=== PATIENT | male | born 1990 | race Caucasian/White ===

== ENCOUNTER 2019-01-08 18:22 | Inpatient (IN) | payer SELFPAY ==
[~2019-01-08] VITALS: Ht 175.3 cm; Wt 69.2 kg
[2019-01-08] MEDS ORDERED: ADENOSINE 3 MG/ML 2ML VIAL IV ONE ×5 (18:55→20:30)
[2019-01-08] MEDS ORDERED: DILTIAZEM HCL 5MG/ML 5ML VIAL IV ONE ×6 (19:06→19:30)
[2019-01-08] MEDS ORDERED: LORAZEPAM 2MG/ML CPJ ONE ×2 (19:15→19:21)
[2019-01-08 19:26] LABS: BASOPHILS % 0.5 % (0.0-2.0); EOSINOPHILS % 0.2 % (0.0-5.0); HEMATOCRIT. 48.1 % (42.0-52.0); LYMPHOCYTES % 23.1 % (20.0-50.0); MEAN CORPUSCULAR HEMOGLOBIN 30.3 pg (28.0-32.0); MEAN CORPUSCULAR VOLUME 90.9 fL (80.0-94.0); MEAN PLATELET VOLUME 8.1 fl (7.4-10.4); MONOCYTES % 7.8 % (2.0-8.0); NEUTROPHILS % 68.4 % (40.0-76.0); PLATELET 327 x1000/uL (130-400); RED BLOOD CELL COUNT 5.29 mill/uL (4.7-6.1); RED CELL DISTRIBUTION WIDTH 13.4 % (11.6-14.6)
[2019-01-08] MEDS ORDERED: LORAZEPAM 2MG/ML CPJ IV ONE ×3 (19:30→19:45)
[2019-01-08 19:33] LABS: CHLORIDE 103 mEq/L (98-107); PROTHROMBIN TIME 10.1 sec (9.1-11.1)
[2019-01-08 19:37] LABS: ETHANOL BLOOD < 10 mg/dL
[2019-01-08] MEDS ORDERED: ONDANSETRON HCL 4MG/2ML INJ IV ONE (20:00)
[2019-01-08] MEDS ORDERED: SODIUM CHLORIDE 0.9% 1000ML BAG (SEPSIS BOLUS) IV ONE (20:00)
[2019-01-08] MEDS ORDERED: ETOMIDATE 2MG/ML 10ML VIAL IV ONE ×2 (20:00→23:00)
[2019-01-08] MEDS ORDERED: ACETAMINOPHEN 650MG SUPP PR STA (20:35)
[2019-01-08] MEDS ORDERED: PROPOFOL 10MG/ML 100ML 100 ML IV ONE (20:45)
[2019-01-08] MEDS ORDERED: PIPERACILLIN/TAZ 3.375G PREMIX 50 ML IV ONE (20:45)
[2019-01-08 20:52] LABS: CLARITY URINE CLOUDY (CLEAR); COLOR URINE YELLOW (YELLOW); KETONES URINE TRACE (NEGATIVE); LEUKOCYTE ESTERASE URINE NEGATIVE (NEGATIVE); NITRITE URINE NEGATIVE (NEGATIVE); OCCULT BLOOD URINE NEGATIVE (NEGATIVE); PROTEIN URINE TRACE (NEGATIVE); SPECIFIC GRAVITY URINE 1.023 (1.005-1.030); UROBILINOGEN URINE 0.2 E.U./dL (0.2-1.0)
[2019-01-08] MEDS ORDERED: PIPERACILLIN/TAZ 3.375G PREMIX 50 ML IV SCH (21:00)
[2019-01-08 21:13] LABS: CREATINE KINASE 268 IU/L (39-308)
[2019-01-08 21:28] LABS: CANNABINOID URINE SCREEN NEGATIVE (NEGATIVE); METHADONE URINE SCREEN NEGATIVE (NEGATIVE); OPIATES URINE SCREEN NEGATIVE (NEGATIVE); PHENCYCLIDINE URINE SCREEN NEGATIVE (NEGATIVE)
[2019-01-08 21:29] LABS: *AMPHETAMINES SCREEN URINE PRESUMTIVE POSITIVE (NEGATIVE); *BARBITURATES SCREEN URINE NEGATIVE (NEGATIVE); *BENZODIAZEPINES SCREEN URINE NEGATIVE (NEGATIVE); *COCAINE SCREEN URINE PRESUMTIVE POSITIVE (NEGATIVE)
[2019-01-08] MEDS ORDERED: VANCOMYCIN 1 G PREMIX 200 ML IV ONE (21:30)
[2019-01-08] MEDS ORDERED: ONDANSETRON HCL 4MG/2ML INJ IV PRN (22:30)
[2019-01-08] MEDS ORDERED: IPRATROPIUM/ALBUTEROL 0.5-3(2.5)MG/3ML NEB INH PRN (22:30)
[2019-01-08] MEDS ORDERED: HYDROCODONE/ACETAMINOPHEN 5/325MG TABLET PO PRN (22:30)
[2019-01-08] MEDS ORDERED: CLONIDINE 0.1MG TABLET PO PRN (22:30)
[2019-01-08] MEDS ORDERED: GUAIFENESIN 200MG/10ML SUGAR FREE UDC PO PRN (22:30)
[2019-01-08] MEDS ORDERED: MAGNESIUM/ALUMINUM HYDROXIDE/SIMETHICONE 30ML UDC PO PRN (22:30)
[2019-01-08] MEDS ORDERED: VANCOMYCIN 1 G PREMIX 200 ML IV SCH (22:30)
[2019-01-08] MEDS ORDERED: ACETAMINOPHEN 325MG TABLET PO PRN (22:30)
[2019-01-08] MEDS ORDERED: HYDRALAZINE 20MG/ML VIAL IV PRN (22:30)
[2019-01-08] MEDS ORDERED: DOCUSATE SODIUM 100MG CAPSULE PO PRN (22:30)
[2019-01-08] MEDS ORDERED: SODIUM CHLORIDE 0.9% 10ML VIAL ONE (23:00)
[2019-01-08] MEDS ORDERED: VECURONIUM BROMIDE 10 MG/VIAL IV ONE (23:00)
[2019-01-09] VITALS (35 sets, daily range): BP systolic 97–143; BP diastolic 57–108
[2019-01-09] MEDS: DEXT 5%/0.45% NACL 1000ML 1,000 ML IV SCH ×2 (00:43→10:39)
[2019-01-09] MEDS: LORAZEPAM 2MG/ML CPJ IV PRN ×4 (00:54→15:09)
[2019-01-09] MEDS ORDERED: PROPOFOL 10MG/ML 100ML 100 ML IV PRN (01:15)
[2019-01-09 04:24] LABS: BG BASE EXCESS -3.3 mmol/L (-2.0-2.0); BG CARBOXYHEMOGLOBIN 0.3 % (0.5-1.5); BG DEOXYHEMOGLOBIN 0.9 % (0.0-5.0); BG FRACTION INSPIRED OXYGEN 70; BG HCO3 ACT 20.7 mmol/L (22.0-26.0); BG METHEMOGLOBIN 0.5 % (0.0-1.5); BG OXYGEN SATURATION 99.1 % (92.0-98.5); BG OXYHEMOGLOBIN 98.3 % (94.0-97.0); BG PCO2 33.8 mmHg (35.0-45.0); BG PH 7.404 (7.350-7.450); BG PO2 284.1 mmHg (75.0-100.0); BG SAMPLE SITE RIGHT RADIAL; BG TIDAL VOLUME(mL) 500 mL; BG TOTAL HEMOGLOBIN 12.5 g/dL (12.0-18.0); BG VENT MODE VENT - A/C; BG VENT RATE 14 set
[2019-01-09 05:20] LABS: CHLORIDE 112 mEq/L (98-107)
[2019-01-09 05:29] LABS: T4 FREE 0.88 ng/dL (0.76-1.46)
[2019-01-09] MEDS: SODIUM CHLORIDE 0.9% INJ 3ML FLUSH IVF SCH ×3 (06:00→21:11)
[2019-01-09] MEDS ORDERED: PIPERACILLIN/TAZ 3.375G PREMIX 50 ML IV SCH ×2 (06:00→10:30)
[2019-01-09 06:12] LABS: HEMATOCRIT. 37.2 % (42.0-52.0); MEAN CORPUSCULAR HEMOGLOBIN 30.3 pg (28.0-32.0); MEAN CORPUSCULAR VOLUME 89.8 fL (80.0-94.0); MEAN PLATELET VOLUME 8.2 fl (7.4-10.4); PLATELET 168 x1000/uL (130-400); RED BLOOD CELL COUNT 4.14 mill/uL (4.7-6.1); RED CELL DISTRIBUTION WIDTH 13.6 % (11.6-14.6)
[2019-01-09 06:29] LABS: CREATINE KINASE 21684 IU/L (39-308)
[2019-01-09 06:31] LABS: HEMOGLOBIN. 12.5 g/dL (14.0-18.0)
[2019-01-09 06:52] LABS: PLATELET ESTIMATE NORMAL
[2019-01-09] MEDS ORDERED: VANCOMYCIN 1 G PREMIX 200 ML IV NR ×2 (08:00→10:30)
[2019-01-09] MEDS: ENOXAPARIN 40MG/0.4ML SYR SUBCUT SCH (10:39)
[2019-01-09] MEDS: FENTANYL CITRATE/PF 500 MCG in SODIUM CHLORIDE 0.9% 40 ML IV PRN ×3 (10:48→21:46)
[2019-01-09] MEDS ORDERED: FOLIC ACID 1 MG, THIAMINE HCL 100 MG, MVI, ADULT NO.1 10 ML in DEXTROSE 5% WATER 1,000 ML IV SCH ×4 (13:15)
[2019-01-09] MEDS: FOLIC ACID 1 MG, THIAMINE HCL 100 MG, MVI, ADULT NO.1 10 ML in DEXTROSE 5% WATER 1,000 ML IV SCH ×4 (13:30)
[2019-01-09] MEDS: MIDAZOLAM HCL 50 MG in DEXTROSE 5% WATER 40 ML IV PRN ×3 (13:31→21:45)
[2019-01-09] MEDS ORDERED: METRONIDAZOLE 500 MG PREMIX 100 ML IV SCH (15:30)
[2019-01-09] MEDS: DIPHENHYDRAMINE 50MG/ML VIAL IV PRN (15:40)
[2019-01-09 16:24] LABS: CREATINE KINASE MB FRACTION 289.9 ng/mL (0.5-3.6)
[2019-01-09] MEDS: CEFEPIME 1,000 MG in DEXTROSE 5% WATER 50 ML IV SCH (16:45)
[2019-01-09] MEDS ORDERED: POTASSIUM CHLORIDE 20MEQ TABLET SR PO NR (17:30)
[2019-01-09] MEDS: METRONIDAZOLE 500 MG PREMIX 100 ML IV SCH (17:47)
[2019-01-09] MEDS ORDERED: VANCOMYCIN 1 G PREMIX 200 ML IV SCH (18:00)
[2019-01-09] MEDS ORDERED: POTASSIUM CHLORIDE 20MEQ/PACKET PO NR (18:45)
[2019-01-09 19:35] LABS: BASOPHILS % 0.6 % (0.0-2.0); EOSINOPHILS % 1.8 % (0.0-5.0); HEMATOCRIT. 37.4 % (42.0-52.0); HEMOGLOBIN. 12.8 g/dL (14.0-18.0); LYMPHOCYTES % 20.1 % (20.0-50.0); MEAN CORPUSCULAR HEMOGLOBIN 30.3 pg (28.0-32.0); MEAN CORPUSCULAR VOLUME 88.7 fL (80.0-94.0); MEAN PLATELET VOLUME 7.5 fl (7.4-10.4); MONOCYTES % 11.4 % (2.0-8.0); NEUTROPHILS % 66.1 % (40.0-76.0); PLATELET 196 x1000/uL (130-400); RED BLOOD CELL COUNT 4.22 mill/uL (4.7-6.1); RED CELL DISTRIBUTION WIDTH 13.5 % (11.6-14.6)
[2019-01-09] MEDS: CHLORDIAZEPOXIDE 5 MG CAPSULE PO SCH (21:10)
[2019-01-09] MEDS: RISPERIDONE 0.5MG TABLET NG SCH (21:11)
[2019-01-10] VITALS (36 sets, daily range): BP systolic 98–179; BP diastolic 50–143
[2019-01-10] MEDS: LORAZEPAM 2MG/ML CPJ IV PRN ×4 (02:12→23:09)
[2019-01-10] MEDS: METRONIDAZOLE 500 MG PREMIX 100 ML IV SCH ×3 (02:21→17:44)
[2019-01-10] MEDS: FENTANYL CITRATE/PF 500 MCG in SODIUM CHLORIDE 0.9% 40 ML IV PRN ×2 (02:56→08:09)
[2019-01-10] MEDS: MIDAZOLAM HCL 50 MG in DEXTROSE 5% WATER 40 ML IV PRN ×2 (02:57→08:09)
[2019-01-10] MEDS: CEFEPIME 1,000 MG in DEXTROSE 5% WATER 50 ML IV SCH ×2 (06:00→16:50)
[2019-01-10] MEDS: SODIUM CHLORIDE 0.9% INJ 3ML FLUSH IVF SCH ×3 (06:06→22:20)
[2019-01-10] MEDS: CHLORDIAZEPOXIDE 5 MG CAPSULE PO SCH ×3 (06:07→21:50)
[2019-01-10 06:11] LABS: CHLORIDE 103 mEq/L (98-107)
[2019-01-10 08:20] LABS: BG BASE EXCESS -1.9 mmol/L (-2.0-2.0); BG DEOXYHEMOGLOBIN 1.1 % (0.0-5.0); BG FRACTION INSPIRED OXYGEN 40; BG HCO3 ACT 22.7 mmol/L (22.0-26.0); BG METHEMOGLOBIN 0.3 % (0.0-1.5); BG OXYGEN SATURATION 98.9 % (92.0-98.5); BG OXYHEMOGLOBIN 97.6 % (94.0-97.0); BG PCO2 38.3 mmHg (35.0-45.0); BG PO2 147.9 mmHg (75.0-100.0); BG SAMPLE SITE RIGHT BRACHIAL; BG TIDAL VOLUME(mL) 500 mL; BG TOTAL HEMOGLOBIN 13.7 g/dL (12.0-18.0); BG VENT MODE VENT - A/C; BG VENT RATE 14 set
[2019-01-10] MEDS: ENOXAPARIN 40MG/0.4ML SYR SUBCUT SCH (09:49)
[2019-01-10] MEDS: PANTOPRAZOLE SODIUM 40 MG/VIAL IV SCH (09:49)
[2019-01-10 09:51] LABS: CREATINE KINASE MB FRACTION 71.1 ng/mL (0.5-3.6)
[2019-01-10] MEDS: ASPIRIN 81MG TABLET NG SCH (13:01)
[2019-01-10] MEDS: POTASSIUM CHLORIDE 20MEQ TABLET SR PO SCH (13:01)
[2019-01-10] MEDS: METOPROLOL TARTRATE 50MG TABLET NG SCH ×2 (13:08→21:49)
[2019-01-10] MEDS: DIPHENHYDRAMINE 50MG/ML VIAL IV PRN ×3 (13:08→21:48)
[2019-01-10] MEDS: FOLIC ACID 1 MG, THIAMINE HCL 100 MG, MVI, ADULT NO.1 10 ML in DEXTROSE 5% WATER 1,000 ML IV SCH ×4 (13:09)
[2019-01-10] MEDS: DEXT 5%/0.45% NACL 1000ML 1,000 ML IV SCH (16:50)
[2019-01-10] MEDS: HALOPERIDOL LACTATE 5MG/ML VIAL IM PRN ×2 (17:19→23:09)
[2019-01-10 17:35] LABS: BG BASE EXCESS -0.5 mmol/L (-2.0-2.0); BG DEOXYHEMOGLOBIN 4.4 % (0.0-5.0); BG FRACTION INSPIRED OXYGEN 36; BG HCO3 ACT 23.4 mmol/L (22.0-26.0); BG METHEMOGLOBIN 0.2 % (0.0-1.5); BG OXYGEN SATURATION 95.5 % (92.0-98.5); BG OXYHEMOGLOBIN 94.4 % (94.0-97.0); BG PCO2 36.1 mmHg (35.0-45.0); BG PH 7.429 (7.350-7.450); BG SAMPLE SITE RIGHT BRACHIAL; BG TOTAL HEMOGLOBIN 13.6 g/dL (12.0-18.0); BG VENT MODE NASAL CANNULA
[2019-01-10] MEDS: RISPERIDONE 0.5MG TABLET NG SCH (21:50)
[2019-01-11] VITALS (23 sets, daily range): BP systolic 95–134; BP diastolic 21–125
[2019-01-11] MEDS: METRONIDAZOLE 500 MG PREMIX 100 ML IV SCH ×3 (01:22→17:41)
[2019-01-11] MEDS: DEXT 5%/0.45% NACL 1000ML 1,000 ML IV SCH ×2 (03:00→06:00)
[2019-01-11] MEDS: DIPHENHYDRAMINE 50MG/ML VIAL IV PRN ×3 (03:57→15:14)
[2019-01-11] MEDS: CEFEPIME 1,000 MG in DEXTROSE 5% WATER 50 ML IV SCH ×2 (05:33→16:22)
[2019-01-11] MEDS: CHLORDIAZEPOXIDE 5 MG CAPSULE PO SCH ×3 (05:33→22:05)
[2019-01-11] MEDS: SODIUM CHLORIDE 0.9% INJ 3ML FLUSH IVF SCH ×3 (05:33→22:06)
[2019-01-11 06:21] LABS: CHLORIDE 100 mEq/L (98-107)
[2019-01-11 06:22] LABS: BASOPHILS % 0.3 % (0.0-2.0); EOSINOPHILS % 0.6 % (0.0-5.0); HEMATOCRIT. 38.8 % (42.0-52.0); HEMOGLOBIN. 13.3 g/dL (14.0-18.0); LYMPHOCYTES % 9.5 % (20.0-50.0); MEAN CORPUSCULAR HEMOGLOBIN 30.5 pg (28.0-32.0); MEAN CORPUSCULAR VOLUME 89.2 fL (80.0-94.0); MEAN PLATELET VOLUME 8.3 fl (7.4-10.4); NEUTROPHILS % 80.6 % (40.0-76.0); PLATELET 223 x1000/uL (130-400); RED BLOOD CELL COUNT 4.35 mill/uL (4.7-6.1)
[2019-01-11 06:36] LABS: CREATINE KINASE MB FRACTION 14.8 ng/mL (0.5-3.6)
[2019-01-11 07:22] LABS: CREATINE KINASE 9985 IU/L (39-308)
[2019-01-11] MEDS: HALOPERIDOL LACTATE 5MG/ML VIAL IM PRN ×2 (08:22→14:19)
[2019-01-11] MEDS: LORAZEPAM 2MG/ML CPJ IV PRN ×2 (08:38→12:10)
[2019-01-11] MEDS ORDERED: LORAZEPAM 2MG/ML CPJ IV PRN ×2 (09:00→13:30)
[2019-01-11] MEDS: PANTOPRAZOLE SODIUM 40 MG/VIAL IV SCH (09:24)
[2019-01-11] MEDS: ASPIRIN 81MG TABLET NG SCH (09:25)
[2019-01-11] MEDS: METOPROLOL TARTRATE 50MG TABLET NG SCH (09:27)
[2019-01-11] MEDS: RISPERIDONE 1MG TABLET NG SCH ×2 (09:27→16:22)
[2019-01-11] MEDS: POTASSIUM CHLORIDE 20MEQ TABLET SR PO SCH (09:27)
[2019-01-11] MEDS: ENOXAPARIN 40MG/0.4ML SYR SUBCUT SCH (09:28)
[2019-01-11] MEDS: FOLIC ACID 1 MG, THIAMINE HCL 100 MG, MVI, ADULT NO.1 10 ML in DEXTROSE 5% WATER 1,000 ML IV SCH ×4 (14:19)
[2019-01-11] MEDS: HYDROMORPHONE HCL/PF 2MG/ML CPJ IV PRN ×2 (16:20→22:05)
[2019-01-11] MEDS: METOPROLOL TARTRATE 100MG TABLET NG SCH (21:00)
[2019-01-12] VITALS (16 sets, daily range): BP systolic 98–119; BP diastolic 44–80
[2019-01-12] MEDS: DEXT 5%/0.45% NACL 1000ML 1,000 ML IV SCH ×3 (00:20→10:04)
[2019-01-12] MEDS: METRONIDAZOLE 500 MG PREMIX 100 ML IV SCH ×3 (01:33→21:03)
[2019-01-12] MEDS: HALOPERIDOL LACTATE 5MG/ML VIAL IM PRN (01:33)
[2019-01-12] MEDS: HYDROMORPHONE HCL/PF 2MG/ML CPJ IV PRN (01:35)
[2019-01-12] MEDS: CEFEPIME 1,000 MG in DEXTROSE 5% WATER 50 ML IV SCH ×2 (06:42→21:03)
[2019-01-12] MEDS: SODIUM CHLORIDE 0.9% INJ 3ML FLUSH IVF SCH ×3 (06:42→22:00)
[2019-01-12] MEDS: CHLORDIAZEPOXIDE 5 MG CAPSULE PO SCH ×3 (06:42→22:00)
[2019-01-12] MEDS: METOPROLOL TARTRATE 100MG TABLET NG SCH ×2 (09:39→21:00)
[2019-01-12] MEDS: POTASSIUM CHLORIDE 20MEQ TABLET SR PO SCH (09:39)
[2019-01-12] MEDS: RISPERIDONE 1MG TABLET NG SCH ×2 (09:39→21:01)
[2019-01-12] MEDS: ASPIRIN 81MG TABLET NG SCH (09:39)
[2019-01-12] MEDS: DIPHENHYDRAMINE 50MG/ML VIAL IV PRN (09:39)
[2019-01-12] MEDS: PANTOPRAZOLE SODIUM 40 MG/VIAL IV SCH (10:03)
[2019-01-12] MEDS: ENOXAPARIN 40MG/0.4ML SYR SUBCUT SCH (10:05)
[2019-01-12] MEDS ORDERED: THROAT LOZENGES-BENZOCAINE/MENTH/CETYLPYRD CL LOZENGES MM PRN (12:00)
[2019-01-12] MEDS: FOLIC ACID 1 MG, THIAMINE HCL 100 MG, MVI, ADULT NO.1 10 ML in DEXTROSE 5% WATER 1,000 ML IV SCH ×8 (13:30→13:42)
[2019-01-13] VITALS: BP 112/56
[2019-01-13 01:15] VITALS: BP 94/47
[2019-01-13] MEDS: METRONIDAZOLE 500 MG PREMIX 100 ML IV SCH ×2 (02:20→11:44)
[2019-01-13] MEDS: DEXT 5%/0.45% NACL 1000ML 1,000 ML IV SCH (02:22)
[2019-01-13 04:00] VITALS: BP 104/52
[2019-01-13] MEDS: CHLORDIAZEPOXIDE 5 MG CAPSULE PO SCH (05:34)
[2019-01-13] MEDS: CEFEPIME 1,000 MG in DEXTROSE 5% WATER 50 ML IV SCH (05:34)
[2019-01-13] MEDS: SODIUM CHLORIDE 0.9% INJ 3ML FLUSH IVF SCH (05:35)
[2019-01-13 06:56] LABS: CHLORIDE 106 mEq/L (98-107)
[2019-01-13 07:06] LABS: CREATINE KINASE MB FRACTION 4.4 ng/mL (0.5-3.6)
[2019-01-13 07:18] LABS: CREATINE KINASE 3078 IU/L (39-308)
[2019-01-13 08:00] VITALS: BP 113/53
[2019-01-13] MEDS: POTASSIUM CHLORIDE 20MEQ TABLET SR PO SCH (09:08)
[2019-01-13] MEDS: PANTOPRAZOLE SODIUM 40 MG/VIAL IV SCH (09:08)
[2019-01-13] MEDS: ASPIRIN 81MG TABLET NG SCH (09:09)
[2019-01-13] MEDS: METOPROLOL TARTRATE 100MG TABLET NG SCH (09:09)
[2019-01-13] MEDS: RISPERIDONE 1MG TABLET NG SCH (09:09)
[2019-01-13] MEDS: ENOXAPARIN 40MG/0.4ML SYR SUBCUT SCH (11:44)
[2019-01-13 12:00] VITALS: BP 108/66
[2019-01-13 13:36] VITALS: BP 108/66
== END 2019-01-13 15:33 | disposition home or self-care (01) | DRG 816 ==
LOC: ER 18:42 → MICUNO 20:49 → EDBEDREQ 20:52 → EDBEDREQTM 20:52 → EDBEDREQSVC 20:53 → ENRESERV 01-09 07:14 → 7WST 01-13 01:24
PROVIDERS: ADMIT Internal Medicine; ATTEND Internal Medicine
PROC: 5A1945Z Respiratory Ventilation, 24-96 Consecutive Hours (ICD-10-PCS; principal; 2019-01-08)
PROC: 0BH17EZ Insertion of Endotracheal Airway into Trachea, Via Natural or Artificial Opening (ICD-10-PCS; 2019-01-08)
PROC: 5A2204Z Restoration of Cardiac Rhythm, Single (ICD-10-PCS; 2019-01-08)
DX: T40.5X1A Poisoning by cocaine, accidental (unintentional), initial encounter (principal); J96.00 Acute respiratory failure, unspecified whether with hypoxia or hypercapnia; A41.9 Sepsis, unspecified organism; G92 Toxic encephalopathy; T43.621A Poisoning by amphetamines, accidental (unintentional), initial encounter; T43.641A Poisoning by ecstasy, accidental (unintentional), initial encounter; E87.2 Acidosis; M62.82 Rhabdomyolysis; I47.1 Supraventricular tachycardia; F10.10 Alcohol abuse, uncomplicated; F15.90 Other stimulant use, unspecified, uncomplicated; I25.10 Atherosclerotic heart disease of native coronary artery without angina pectoris; I48.91 Unspecified atrial fibrillation; F14.90 Cocaine use, unspecified, uncomplicated; I24.8 Other forms of acute ischemic heart disease; R74.0 Nonspecific elevation of levels of transaminase and lactic acid dehydrogenase [LDH]; Y92.89 Other specified places as the place of occurrence of the external cause
CPT/HCPCS: 31500; 36415; 36600; 71045; 74018; 80048; 80076; 80202; 80305; 80320; 82375; 82550; 82553; 82805; 82962; 83605; 83735; 83880; 84439; 84443; 84478; 84484; 92610; 92960; 93005; 93306; 94002; 94003; 94640; 96365; 96367; 96375; 99291; C9113; J0153; J0692; J1170; J1200; J1630; J1650; J2060; J2250; J2405; J2543; J2704; J3010; J3370; J3411; J3490; J7030; J7060; J7070; J7620; G0480

== ENCOUNTER 2022-07-25 07:24 | Emergency (ER) | payer MEDICAID, OTHER ==
[~2022-07-25] VITALS: Ht 170.2 cm; Wt 77.0 kg
[2022-07-25 07:32] VITALS: BP 143/77
[2022-07-25] MEDS ORDERED: LORAZEPAM 1MG TABLET PO ONE (08:00)
== END 2022-07-25 09:00 | disposition home or self-care (01) ==
LOC: ER 07:27
DX: R00.2 Palpitations (principal); F41.0 Panic disorder [episodic paroxysmal anxiety]; R94.31 Abnormal electrocardiogram [ECG] [EKG]
CPT/HCPCS: 93005; 99283

== ENCOUNTER 2024-09-29 22:42 | Emergency (ER) | payer OTHER ==
[~2024-09-29] VITALS: Ht 165.1 cm; Wt 73.0 kg
[2024-09-29 22:52] VITALS: BP 119/61; PULSE 74; RESP 16; TEMP 97.9; O2SAT 96
[2024-09-29] MEDS ORDERED: CEPH500C2 MT (22:52)
[2024-09-29] MEDS ORDERED: MULT-622 MT (22:52)
[2024-10-01] MEDS ORDERED: CHLO25CA10 PO (01:15)
== END 2024-09-29 22:59 | disposition home or self-care (01) ==
LOC: ER 22:42
DX: F10.20 Alcohol dependence, uncomplicated (principal); F41.9 Anxiety disorder, unspecified; F14.10 Cocaine abuse, uncomplicated; F15.10 Other stimulant abuse, uncomplicated
CPT/HCPCS: 99283

== ENCOUNTER 2025-01-31 22:27 | Emergency (ER) | payer OTHER ==
[~2025-01-31] VITALS: Ht 170.2 cm; Wt 84.0 kg
[~2025-01-31 22:27] MED LIST: COR3 PO; FOLI-43 PO; MULT-230 MT; THIA100T88 MT
[2025-01-31 22:37] VITALS: BP 122/79; PULSE 86; RESP 16; TEMP 36.8; O2SAT 99
== END 2025-01-31 22:43 | disposition left against medical advice (07) ==
LOC: ER 22:27
DX: R42 Dizziness and giddiness (principal); K70.30 Alcoholic cirrhosis of liver without ascites; I10 Essential (primary) hypertension; F14.90 Cocaine use, unspecified, uncomplicated; F15.90 Other stimulant use, unspecified, uncomplicated
CPT/HCPCS: 99283

== ENCOUNTER 2025-03-20 14:01 | Emergency (ER) | payer MEDICAID ==
[~2025-03-20] VITALS: Ht 175.3 cm; Wt 70.0 kg
[2025-03-20 14:11] VITALS: TEMP 36.8; O2SAT 97
[2025-03-20 16:55] VITALS: BP 121/79; PULSE 94; RESP 18; O2SAT 99
== END 2025-03-20 16:59 | disposition home or self-care (01) ==
LOC: ER 14:01
DX: F10.129 Alcohol abuse with intoxication, unspecified (principal); F15.90 Other stimulant use, unspecified, uncomplicated; F14.90 Cocaine use, unspecified, uncomplicated; Z79.899 Other long term (current) drug therapy; Y90.9 Presence of alcohol in blood, level not specified
CPT/HCPCS: 99284